=== PATIENT | female | born 1980 | race Caucasian/White ===

== ENCOUNTER 2021-11-27 16:57 | Emergency (ER) | payer SELFPAY ==
--- NOTE | ~2021-11-27 | XR_ITS ---
EXAM: XR ankle LT min 3V DATE: 11/27/2021 17:16 HISTORY: INVERSION INJURY, LAT MALLEOLUS PAIN . COMPARISON: None available. FINDINGS: Normal mineralization. No fracture or dislocation. No lytic or blastic lesion. Joint space s are maintained. No erosion or periosteal change. Lateral soft tissue swelling. IMPRESSION: No acute osseous finding in the left ankle. Reviewed, dictated and finalized at location K.
--- NOTE | 2021-11-27 17:02 | ED.LOWEXIN ---
HPI - Extremity Injury (Lower) General Chief Complaint: Extremity Injury, Lower Stated Complaint: Left ankle injury Time Seen by Provider: 11/27/21 17:02 Source: patient, family and RN notes reviewed Mode of arrival: wheelchair History of Present Illness HPI Narrative: Patient is a 41-year-old female who presents the urgent care with her with complaints of left ankle pain and swelling. Patient states that she stepped off a landscaping brick approximately 40 minutes ago and heard an immediate pop with swelling. Patient states that she immediately put ice on it has not taken anything for the pain. States that she cannot bear weight. No other acute complaints or injuries. No acute distress noted. Patient aware of the plan of care. Some parts of this dictation were generated by voice recognition software and may contain typographical and/or grammatical inaccuracies. Related Data Home Medications Medication Instructions Recorded Confirmed No Home Medications 11/27/21 11/27/21 Allergies Allergy/AdvReac Type Severity Reaction Status Date / Time codeine AdvReac Unknown Nausea and Verified 11/27/21 17:11 Vomiting Penicillins AdvReac Unknown Nausea and Verified 11/27/21 17:11 Vomiting Sulfa (Sulfonamide AdvReac Unknown Nausea and Verified 11/27/21 17:11 Antibiotics) Vomiting Review of Systems Review of Systems: CONSTITUTIONAL: Denies fever, chills, or sweats. EYES: Denies visual changes, redness, or discharge. ENT: Denies rhinorrhea, congestion, sore throat, or otalgia. CARDIOVASCULAR: Denies chest pain, palpitations, or edema. RESPIRATORY: Denies cough or dyspnea. GASTROINTESTINAL: Denies abdominal pain, nausea, vomiting, or diarrhea. GENITOURINARY: Denies dysuria or hematuria. SKIN: Denies rash or itching. MUSCULOSKELETAL: Reports of left ankle pain and swelling NEUROLOGIC: Denies headache, numbness, or weakness. All other systems reviewed are negative, except as documented in HPI. PMFSH Comments At the time of my signature, I reviewed and agree with the nursing past medical, surgical, social, and family history. There is no relevant family history pertinent to the patient complaint. Exam Narrative: GENERAL: This is a well-nourished, well-developed patient, in no apparent distress. HEAD: normocephalic, atraumatic. EYES: PERRL. Sclera clear/white. Vision is grossly intact. EARS: External ears normal NOSE: External nose normal with no obvious nasal discharge, nares without redness, no rhinorrhea. THROAT: Mucous membranes moist NECK: Neck supple CARDIOVASCULAR: Regular rate and rhythm without murmurs, gallops, or rubs. RESPIRATORY: Clear to auscultation. Breath sounds equal bilaterally. No wheezes, rales, or rhonchi. SKIN: warm, intact with no suspicious lesions or rash, good texture and turgor. NEURO: awake, alert, and oriented to person, place and time. There were no obvious focal neurologic abnormalities. EXTREMITIES: Moderate edema, tenderness and ecchymosis noted to the medial left malleolus. Range of motion of left lower extremity not tested due to pain. Positive strong left pedal pulse with capillary refill less than 2 seconds. Course Course Level of Care: Express Care Visit Vital Signs Vital signs: Vital Signs Temperature 98.4 F 11/27/21 17:05 Pulse Rate 97 11/27/21 17:05 Respiratory Rate 14 11/27/21 17:05 Blood Pressure 124/81 11/27/21 17:05 Pulse Oximetry 98 11/27/21 17:05 Oxygen Delivery Room Air 11/27/21 17:05 Temperature 98.4 F 11/27/21 17:05 Pulse Rate 97 11/27/21 17:05 Respiratory Rate 14 11/27/21 17:05 Blood Pressure 124/81 11/27/21 17:05 Pulse Oximetry 98 11/27/21 17:05 Oxygen Delivery Room Air 11/27/21 17:05 Reviewed MDM - Extremity Injury (Lower) MDM Narrative Medical decision making narrative: Reviewed x-ray results with the patient. She is aware that x-ray was negative for fracture or deformity. Advised the patient to
[2021-11-27 17:05] VITALS: BP 124/81; PULSE 97; RESP 14; TEMP 36.9; O2SAT 98
--- NOTE | 2021-11-27 17:17 | PC.NURSE ---
PT TAKEN TO RADIOLOGY AND ROOM IN WHEELCHAIR. PT BROUGHT HER OWN ICE FOR COMFORT.
== END 2021-11-27 17:44 | disposition home or self-care (01) ==
PROVIDERS: Emergency Provider Nurse Practitioner Family; PCP Family Medicine
DX: S93.402A Sprain of unspecified ligament of left ankle, initial encounter (principal); S96.912A Strain of unspecified muscle and tendon at ankle and foot level, left foot, initial encounter; X58.XXXA Exposure to other specified factors, initial encounter
CPT/HCPCS: 73610; 99203; G0463